=== PATIENT | female | born 2000 | race Caucasian/White ===

== ENCOUNTER 2022-02-14 20:55 | Emergency (ER) | payer OTHER ==
[~2022-02-14] VITALS: Ht 160 cm; Wt 57.2 kg
== END 2022-02-15 01:54 ==
LOC: ER 20:55
DX: N93.9 Abnormal uterine and vaginal bleeding, unspecified (principal)

== ENCOUNTER 2022-03-11 11:09 | Inpatient (IN) | payer OTHER ==
[~2022-03-11] VITALS: Ht 160 cm; Wt 57.2 kg
--- NOTE | 2022-03-11 11:37 | NUR ---
SE RECIBE PTE ALERTA Y ORIENTADA X3 QUIEN REFIERE HACE DOS SEMANAS TUVO UN ABORTO Y HOY LE ENCONTRARON UN ABORTO ECTOPICO Y LA REFIRIERON PARA ER. PTE DE LA DENZEL NUVIA. SE MONITOREAN S/V Y SE UBICA EN OBSERVACION.
--- NOTE | 2022-03-11 12:43 | NUR ---
PTE EVALUADA POR EL DR GE QUIEN ORDENA EL TX. MR Starr MATUTE ORIENTA SOBRE EL TX ORDENADO, LO CUAL REFIERE ENTENDER, REALIA PRUEBAS DE LABORATORIO Y ADMINISTRA MEDICAMENTOS MEG ORDEN MEDICA Y SIGUIENDO MEDIDAS ASEPTICAS. SONOGRAMA MFM NOTIFICADO A PERSONAL DE TUR[place].
[2022-03-12] MEDS ORDERED: PROGESTERONE200 MG (16:45)
== END 2022-03-13 17:04 | disposition home or self-care (01) | DRG 833 ==
LOC: ER 11:09 → OB/GYN 16:22
PROVIDERS: ADMIT Specialist; ATTEND Specialist
PROC: BY49ZZZ Ultrasonography of First Trimester, Single Fetus (ICD-10-PCS; principal; 2022-03-11)
PROC: BU4CZZZ Ultrasonography of Uterus and Ovaries (ICD-10-PCS; 2022-03-11)
DX: O00.111 Right tubal pregnancy with intrauterine pregnancy (principal); O36.80X0 Pregnancy with inconclusive fetal viability, not applicable or unspecified; O26.851 Spotting complicating pregnancy, first trimester; Z20.822 Contact with and (suspected) exposure to COVID-19

== ENCOUNTER 2023-06-20 14:33 | Outpatient (CLI) | payer OTHER ==
[~2023-06-20 14:33] MED LIST: PROGESTERONE200 MG
== END 2023-06-20 17:17 | disposition home or self-care (01) ==
LOC: PRENATAL 14:33
PROVIDERS: ATTEND Obstetrics & Gynecology Maternal & Fetal Medicine
DX: O36.80X0 Pregnancy with inconclusive fetal viability, not applicable or unspecified (principal); Z36.82 Encounter for antenatal screening for nuchal translucency; Z36.9 Encounter for antenatal screening, unspecified; Z3A.12 12 weeks gestation of pregnancy

== ENCOUNTER 2023-06-28 08:54 | Emergency (ER) | payer OTHER ==
[~2023-06-28] VITALS: Ht 162.6 cm; Wt 68.0 kg
[2023-06-28] MEDS ORDERED: PRENATAL CAPLE1 EAC1 (09:15)
[2023-06-28 12:17] LABS: HEMATOCRIT 37.9 % (36.0-45.00); HEMOGLOBIN 12.6 g/dL (12.0-15.00); MEAN CELL VOLUME 90.3 fL (80.00-100.00); MEAN CORPUSCULAR HEMOGLOBIN 29.9 pg (27.00-32.0); MEAN CORPUSCULAR HGB CONC 33.1 g/dl (32.0-36.0); PLATELET COUNT 255 K/uL (150-450); RED CELL DISTRIBUTION WIDTH 13.8 % (11.5-14.5)
[2023-06-28 12:45] LABS: ALBUMIN 3.3 gm/dL (3.4-5.0); BILIRUBIN TOTAL 0.18 mg/dL (0.3-1.2); CREATININE SERUM 0.47 mg/dL (0.55-1.02); GFR 168.94; GLOBULINA 3.8 G/DL (2.4-3.5); POTASSIUM 3.53 mEq/L (3.5-5.1); TOTAL PROTEIN 7.1 gm/dL (6.4-8.2)
== END 2023-06-28 18:08 | disposition home or self-care (01) ==
LOC: ER 08:55
PROVIDERS: Emergency Medicine
DX: O26.891 Other specified pregnancy related conditions, first trimester (principal); Z3A.13 13 weeks gestation of pregnancy; R11.2 Nausea with vomiting, unspecified

== ENCOUNTER 2023-08-08 10:07 | Emergency (ER) | payer OTHER ==
[~2023-08-08] VITALS: Ht 162.6 cm; Wt 68.5 kg
[~2023-08-08 10:07] MED LIST changes: +PRENATAL CAPLE1 EAC1
[2023-08-08 13:01] LABS: HEMATOCRIT 35.1 % (36.0-45.00); HEMOGLOBIN 11.8 g/dL (12.0-15.00); MEAN CELL VOLUME 90.4 fL (80.00-100.00); MEAN CORPUSCULAR HEMOGLOBIN 30.3 pg (27.00-32.0); MEAN CORPUSCULAR HGB CONC 33.6 g/dl (32.0-36.0); PLATELET COUNT 268 K/uL (150-450); RED BLOOD COUNT 3.88 M/uL (4.00-6.00); RED CELL DISTRIBUTION WIDTH 14.2 % (11.5-14.5)
[2023-08-08 13:48] LABS: PH,URINE 7.5 (5.0-8.0); URINE APPEARANCE Clear; URINE BILIRRUBIN Negative (NEGATIVE); URINE BLOOD Negative; URINE COLOR Yellow; URINE GLUCOSE Negative (NEGATIVE); URINE LEUKOCYTE Negative; URINE NITRATE Negative; URINE PROTEIN Negative (NEGATIVE); URINE UROBILINOGEN 0.2 E.U./dl
[2023-08-08 13:49] LABS: URINE BACTERIA 2974.7 uL (0.0-1933); URINE EPITHELIAL CELLS 19.4 uL (0.0-38.8); URINE RBC 9.1 uL (0.0-20.8); URINE WBC 19.9 uL (0.0-23.2)
== END 2023-08-08 14:52 | disposition home or self-care (01) ==
LOC: ER 10:07
PROVIDERS: General Practice
DX: O26.892 Other specified pregnancy related conditions, second trimester (principal); Z3A.19 19 weeks gestation of pregnancy; R06.02 Shortness of breath; R09.81 Nasal congestion; Z20.822 Contact with and (suspected) exposure to COVID-19

== ENCOUNTER 2023-08-11 12:30 | Outpatient (CLI) | payer OTHER | END 2023-08-11 12:31 | disposition home or self-care (01) | LOC: PRENATAL 12:30 | PROVIDERS: ATTEND Obstetrics & Gynecology Maternal & Fetal Medicine | DX: O35.3XX0 Maternal care for (suspected) damage to fetus from viral disease in mother, not applicable or unspecified (principal); O44.00 Complete placenta previa NOS or without hemorrhage, unspecified trimester; Z3A.20 20 weeks gestation of pregnancy ==

== ENCOUNTER 2023-09-28 23:30 | Outpatient (CLI) | payer OTHER ==
[2023-09-29 00:19] LABS: HEMATOCRIT 31.3 % (36.0-45.00); MEAN CELL VOLUME 88.7 fL (80.00-100.00); MEAN CORPUSCULAR HGB CONC 33.7 g/dl (32.0-36.0); PLATELET COUNT 262 K/uL (150-450); RED BLOOD COUNT 3.53 M/uL (4.00-6.00)
[2023-09-29 00:28] LABS: HEMOGLOBIN 10.6 g/dL (12.0-15.00)
[2023-09-29 00:37] LABS: URINE APPEARANCE Clear; URINE BACTERIA 3676.6 uL (0.0-1933); URINE BILIRRUBIN Negative (NEGATIVE); URINE BLOOD Negative; URINE COLOR Yellow; URINE EPITHELIAL CELLS 15.7 uL (0.0-38.8); URINE GLUCOSE Negative (NEGATIVE); URINE LEUKOCYTE Trace; URINE NITRATE Negative; URINE PROTEIN Negative (NEGATIVE); URINE RBC 6.4 uL (0.0-20.8); URINE WBC 28.2 uL (0.0-23.2)
== END 2023-09-29 11:18 | disposition home or self-care (01) ==
LOC: OBS/DEL 23:30
PROVIDERS: ATTEND Student in an Organized Health Care Education/Training Program
DX: O26.892 Other specified pregnancy related conditions, second trimester (principal); R10.84 Generalized abdominal pain; Z3A.26 26 weeks gestation of pregnancy

== ENCOUNTER 2023-11-04 10:13 | Outpatient (CLI) | payer OTHER | END 2023-11-04 10:14 | disposition home or self-care (01) | LOC: PRENATAL 10:13 | PROVIDERS: ATTEND Obstetrics & Gynecology Maternal & Fetal Medicine | DX: O26.849 Uterine size-date discrepancy, unspecified trimester (principal); O36.8199 Decreased fetal movements, unspecified trimester, other fetus; Z3A.32 32 weeks gestation of pregnancy ==

== ENCOUNTER 2023-12-19 14:00 | Inpatient (IN) | payer OTHER ==
[~2023-12-19] VITALS: Ht 160 cm; Wt 79.4 kg
[2023-12-19 15:47] LABS: PH,URINE 7.5 (5.0-8.0); URINE APPEARANCE Clear; URINE BILIRRUBIN Negative (NEGATIVE); URINE BLOOD Negative; URINE COLOR Yellow; URINE GLUCOSE Negative (NEGATIVE); URINE LEUKOCYTE Trace; URINE NITRATE Negative; URINE PROTEIN Negative (NEGATIVE)
[2023-12-19 15:48] LABS: HEMATOCRIT 34.2 % (36.0-45.00); HEMOGLOBIN 11.4 g/dL (12.0-15.00); MEAN CELL VOLUME 85.8 fL (80.00-100.00); MEAN CORPUSCULAR HEMOGLOBIN 28.7 pg (27.00-32.0); MEAN CORPUSCULAR HGB CONC 33.4 g/dl (32.0-36.0); PLATELET COUNT 234 K/uL (150-450); RED BLOOD COUNT 3.99 M/uL (4.00-6.00)
[2023-12-19 15:50] LABS: RED CELL DISTRIBUTION WIDTH 18.4 % (11.5-14.5)
[2023-12-19 15:51] LABS: URINE BACTERIA 1180.2 uL (0.0-1933); URINE EPITHELIAL CELLS 13.5 uL (0.0-38.8)
[2023-12-19 15:54] LABS: URINE RBC 0.8 uL (0.0-20.8)
[2023-12-19 16:40] LABS: INR < 0.93; PARTIAL THROMBOPLASTIN TIME 30.8 SECONDS (22.0-34.0); PROTHROMBIN TIME 9.8 SECONDS (9.0-11.5)
[2023-12-19 16:44] LABS: ALBUMIN 2.8 gm/dL (3.4-5.0); BILIRUBIN TOTAL 0.26 mg/dL (0.3-1.2); CALCIUM 9.2 mg/dL (8.5-10.1); CREATININE SERUM 0.49 mg/dL (0.55-1.02); GFR 159.42; GLOBULINA 3.3 G/DL (2.4-3.5); POTASSIUM 3.91 mEq/L (3.5-5.1); TOTAL PROTEIN 6.1 gm/dL (6.4-8.2)
[2023-12-26] MEDS ORDERED: OXYTOCIN 20 UNITS/500ML RL PIGGYBAG IV ONE (13:26)
[2023-12-26] MEDS ORDERED: OXYTOCIN 500 ML IV SCH (13:30)
[2023-12-26] MEDS ORDERED: CHLORHEXIDINE GLUCONATE 120 ML BOTTLE TOP ONE (15:14)
[2023-12-26] MEDS ORDERED: ERYTHROMYCIN BASE 1 GM TUBE OP ONE (15:14)
[2023-12-26] MEDS ORDERED: OXYTOCIN 20 UNITS/1000ML RL PIGGYBAG IV ONE (15:15)
[2023-12-26] MEDS ORDERED: ACETAMINOPHEN 500 MG GEL..CAP PO PRN (19:30)
[2023-12-26] MEDS ORDERED: BENZOCAINE/MENTHOL 90 ML BOTTLE TOP PRN (19:30)
[2023-12-26] MEDS ORDERED: CHLORHEXIDINE GLUCONATE 120 ML BOTTLE TP SCH (20:30)
[2023-12-26] MEDS ORDERED: LIDOCAINE HCL 1% 200MG/20ML VIAL IJ SCH (20:30)
[2023-12-26] MEDS ORDERED: OXYTOCIN 1,000 ML IV SCH (20:30)
[2023-12-26] MEDS ORDERED: ERYTHROMYCIN BASE 1 GM TUBE OP SCH (20:30)
[2023-12-27 06:23] LABS: HEMATOCRIT 33.2 % (36.0-45.00); HEMOGLOBIN 11.2 g/dL (12.0-15.00); MEAN CORPUSCULAR HEMOGLOBIN 28.6 pg (27.00-32.0); MEAN CORPUSCULAR HGB CONC 33.6 g/dl (32.0-36.0); PLATELET COUNT 213 K/uL (150-450); RED BLOOD COUNT 3.91 M/uL (4.00-6.00); RED CELL DISTRIBUTION WIDTH 18.3 % (11.5-14.5)
[2023-12-27] MEDS ORDERED: PNV,CALCIUM 72/IRON/FOLIC ACID 1 TAB TABLET PO SCH (09:00)
== END 2023-12-28 14:33 | disposition home or self-care (01) | DRG 807 ==
LOC: LDR 12-26 09:02 → OB/GYN 12-26 09:02 → LDR 12-29 14:00
PROVIDERS: Obstetrics & Gynecology; ADMIT Student in an Organized Health Care Education/Training Program; ATTEND Student in an Organized Health Care Education/Training Program
PROC: 10E0XZZ Delivery of Products of Conception, External Approach (ICD-10-PCS; principal; 2023-12-26)
PROC: 0W8NXZZ Division of Female Perineum, External Approach (ICD-10-PCS; 2023-12-26)
PROC: 4A1HXCZ Monitoring of Products of Conception, Cardiac Rate, External Approach (ICD-10-PCS; 2023-12-26)
DX: O80 Encounter for full-term uncomplicated delivery (principal); Z37.0 Single live birth; Z3A.39 39 weeks gestation of pregnancy; Z20.822 Contact with and (suspected) exposure to COVID-19

== ENCOUNTER 2023-12-25 11:28 | Outpatient (CLI) | payer OTHER ==
[~2023-12-25] VITALS: Ht 160 cm; Wt 79.4 kg
[2023-12-25] MEDS ORDERED: RINGERS SOLUTION,LACTATED 1,000 ML IV SCH (12:00)
[2023-12-25 12:23] LABS: HEMATOCRIT 33.4 % (36.0-45.00); HEMOGLOBIN 11.4 g/dL (12.0-15.00); MEAN CELL VOLUME 84.5 fL (80.00-100.00); MEAN CORPUSCULAR HEMOGLOBIN 28.8 pg (27.00-32.0); MEAN CORPUSCULAR HGB CONC 34.1 g/dl (32.0-36.0); PLATELET COUNT 226 K/uL (150-450); RED BLOOD COUNT 3.95 M/uL (4.00-6.00); RED CELL DISTRIBUTION WIDTH 18.2 % (11.5-14.5)
[2023-12-25 12:25] LABS: URINE APPEARANCE Clear; URINE BILIRRUBIN Negative (NEGATIVE); URINE BLOOD Negative; URINE COLOR Yellow; URINE GLUCOSE Negative (NEGATIVE); URINE LEUKOCYTE Trace; URINE NITRATE Negative; URINE PROTEIN Negative (NEGATIVE)
[2023-12-25 12:29] LABS: URINE EPITHELIAL CELLS 2.1 uL (0.0-38.8); URINE RBC 2.4 uL (0.0-20.8); URINE WBC 26.8 uL (0.0-23.2)
[2023-12-25 12:54] LABS: URINE YEAST NEGATIVE /hpf
[2023-12-25] MEDS ORDERED: ACETAMINOPHEN 500 MG GEL..CAP PO ONE ×2 (20:17→21:30)
[2023-12-25] MEDS ORDERED: PROMETHAZINE HCL 25 MG/ML AMPUL IV PRN (21:30)
[2023-12-25] MEDS ORDERED: MEPERIDINE HCL/PF 25 MG/ML VIAL IV PRN (21:30)
== END 2023-12-26 09:01 | disposition still patient (30) ==
LOC: OBS/DEL 11:28
PROVIDERS: Specialist; ATTEND Student in an Organized Health Care Education/Training Program
DX: O26.893 Other specified pregnancy related conditions, third trimester (principal)